=== PATIENT | female | born 2000 | race Caucasian/White ===

== ENCOUNTER 2021-10-19 13:16 | Emergency (ER) | payer MEDICAID ==
[~2021-10-19] VITALS: Ht 157.5 cm; Wt 44.0 kg
[2021-10-19] MEDS ORDERED: ACETAMINOPHEN 325MG TABLET PO ONE (14:30)
[2021-10-19] MEDS ORDERED: KETOROLAC 30MG/ML VIAL IM ONE (14:30)
[2021-10-19] MEDS ORDERED: CYCLOBENZAPRINE 10MG TABLET PO ONE (14:30)
[2021-10-19] MEDS ORDERED: IBUP-2030 MT (14:46)
[2021-10-19] MEDS ORDERED: CYCL5TAB MT (14:46)
[2021-10-19 15:16] VITALS: BP 132/75
== END 2021-10-19 15:18 | disposition home or self-care (01) ==
LOC: ER 13:51
DX: S16.1XXA Strain of muscle, fascia and tendon at neck level, initial encounter (principal); V49.59XA Passenger injured in collision with other motor vehicles in traffic accident, initial encounter; Y93.89 Activity, other specified; Y92.89 Other specified places as the place of occurrence of the external cause; Y99.8 Other external cause status
CPT/HCPCS: 81025; 96372; 99283; J1885